=== PATIENT | male | born 1960 | race African-American/Black ===

== ENCOUNTER 2020-03-15 11:04 | Inpatient (IN) | payer MEDICARE, MEDICAID ==
[~2020-03-15] VITALS: Ht 170.2 cm; Wt 61.0 kg
[~2020-03-15 11:04] MED LIST: AMOX500T2; AMOXICILLIN; KALET2; LAMI1TAB; LEVE10006; OXYC30TA2
[2020-03-15 12:06] LABS: CHLORIDE 106 mEq/L (98-107)
[2020-03-15 12:11] LABS: BASOPHILS % 0.3 % (0.0-2.0); EOSINOPHILS % 0.4 % (0.0-5.0); HEMATOCRIT. 36.5 % (42.0-52.0); HEMOGLOBIN. 12.6 g/dL (14.0-18.0); LYMPHOCYTES % 19.7 % (20.0-50.0); MEAN CORPUSCULAR HEMOGLOBIN 33.9 pg (28.0-32.0); MEAN CORPUSCULAR VOLUME 98.3 fL (80.0-94.0); MEAN PLATELET VOLUME 11.2 fl (7.4-10.4); MONOCYTES % 11.5 % (2.0-8.0); NEUTROPHILS % 68.1 % (40.0-76.0); PLATELET 85 x1000/uL (130-400); RED BLOOD CELL COUNT 3.71 mill/uL (4.7-6.1); RED CELL DISTRIBUTION WIDTH 12.4 % (11.6-14.6)
[2020-03-15] MEDS ORDERED: ONDANSETRON HCL 4MG/2ML INJ IV PRN (14:30)
[2020-03-15] MEDS ORDERED: GUAIFENESIN 200MG/10ML SUGAR FREE UDC PO PRN (14:30)
[2020-03-15] MEDS ORDERED: DOCUSATE SODIUM 100MG CAPSULE PO PRN (14:30)
[2020-03-15] MEDS ORDERED: HYDROCODONE/ACETAMINOPHEN 5/325MG TABLET PO PRN (14:30)
[2020-03-15] MEDS ORDERED: ACETAMINOPHEN 325MG TABLET PO PRN (14:30)
[2020-03-15] MEDS ORDERED: MAGNESIUM/ALUMINUM HYDROXIDE/SIMETHICONE 30ML UDC PO PRN (14:30)
[2020-03-15] MEDS ORDERED: ENOXAPARIN 40MG/0.4ML SYR SUBCUT SCH (14:30)
[2020-03-15] MEDS: SODIUM CHLORIDE 0.45% 1,000 ML IV SCH (16:20)
[2020-03-15 22:01] VITALS: BP 149/75
[2020-03-16] VITALS: BP 136/70
[2020-03-16] MEDS: SODIUM CHLORIDE 0.45% 1,000 ML IV SCH (03:08)
[2020-03-16 04:00] VITALS: BP 129/70
[2020-03-16 06:16] LABS: CHLORIDE 108 mEq/L (98-107)
[2020-03-16 06:22] LABS: LDL CHOLESTEROL 47 mg/dL (5-100)
[2020-03-16 06:24] LABS: HDL CHOLESTEROL 33 mg/dL (40-59)
[2020-03-16 06:28] LABS: HEMATOCRIT. 37.5 % (42.0-52.0); HEMOGLOBIN. 13.4 g/dL (14.0-18.0); MEAN CORPUSCULAR HEMOGLOBIN 34.6 pg (28.0-32.0); MEAN CORPUSCULAR VOLUME 97.1 fL (80.0-94.0); MEAN PLATELET VOLUME 11.3 fl (7.4-10.4); PLATELET 106 x1000/uL (130-400); RED BLOOD CELL COUNT 3.87 mill/uL (4.7-6.1); RED CELL DISTRIBUTION WIDTH 12.3 % (11.6-14.6)
[2020-03-16 13:22] LABS: ATYPICAL LYMPHOCYTES 1
[2020-03-16 13:23] LABS: PLATELET ESTIMATE DECREASED
== END 2020-03-16 14:05 | disposition home or self-care (01) | DRG 74 ==
LOC: ER 11:24 → ENRESERV 21:14 → 5WST 21:37
PROVIDERS: ADMIT Hospitalist; ATTEND Hospitalist
DX: G90.8 Other disorders of autonomic nervous system (principal); F20.9 Schizophrenia, unspecified; D69.6 Thrombocytopenia, unspecified; R00.1 Bradycardia, unspecified; I95.9 Hypotension, unspecified; G40.909 Epilepsy, unspecified, not intractable, without status epilepticus; I12.9 Hypertensive chronic kidney disease with stage 1 through stage 4 chronic kidney disease, or unspecified chronic kidney disease; N18.9 Chronic kidney disease, unspecified; F15.90 Other stimulant use, unspecified, uncomplicated; E87.6 Hypokalemia; E83.42 Hypomagnesemia; Z82.3 Family history of stroke; Z86.73 Personal history of transient ischemic attack (TIA), and cerebral infarction without residual deficits; Z82.49 Family history of ischemic heart disease and other diseases of the circulatory system; Z21 Asymptomatic human immunodeficiency virus [HIV] infection status
CPT/HCPCS: 36415; 71045; 80048; 80053; 80061; 83735; 83880; 84443; 84484; 85025; 93005; 93306; 93970; 99285